=== PATIENT | male | born 1945 | race African-American/Black ===

== ENCOUNTER 2021-09-04 06:49 | Inpatient (IN) ==
[2021-09-04] MEDS ORDERED: ANCEF VIAL 1 GRAM ONE (07:13)
[2021-09-04] MEDS ORDERED: NS 100 ML IV 100 ML ONE (07:13)
[2021-09-04] MEDS ORDERED: NS 1,000 ML IV 1,000 ML ONE ×2 (07:14→12:51)
[2021-09-04] MEDS ORDERED: MARCAINE 0.5% ONE (11:31)
[2021-09-04] MEDS ORDERED: HEPARIN SODIUM IN D5W 75,000 UNITS/1,500 ML BAG ONE (11:31)
[2021-09-04] MEDS ORDERED: FENTANYL VIAL INJ 100 mcg ONE (11:34)
[2021-09-04] MEDS ORDERED: VERSED ONE ×2 (11:36→12:25)
[2021-09-04] MEDS ORDERED: DIPRIVAN VIAL 40 ML ONE (11:37)
[2021-09-04] MEDS ORDERED: KETAMINE 50 MG/5 ML-NACL SYRNG ONE (11:37)
[2021-09-04] MEDS ORDERED: HEPARIN SODIUM INJ 5000 UNITS ONE (12:08)
[2021-09-04] MEDS ORDERED: ACTIVASE CATHFLO ONE (12:51)
[2021-09-04] MEDS ORDERED: HEPARIN SODIUM IN D5W 25,000 UNITS/500 ML BAG ONE (12:51)
[2021-09-04] MEDS: ACTIVASE CATHFLO 12 MG in NS 250 ML IV 228 ML INTRACATH SCH (13:20)
[2021-09-04] MEDS ORDERED: DILAUDID INJ IVP PRN (14:11)
[2021-09-04] MEDS ORDERED: ACTIVASE CATHFLO 12 MG in NS 250 ML IV 228 ML INTRACATH ONE (14:16)
[2021-09-04] MEDS ORDERED: REFLEX: PROVENTIL NEB & PulmiCORT NEB~ NEB SCH (14:30)
[2021-09-04] MEDS ORDERED: NS 500 ML IV 500 ML IV SCH ×2 (15:00)
[2021-09-04 15:13] LABS: BASOPHILS # (AUTO) 0.1 X10^3/uL (0.0-0.1); BASOPHILS % (AUTO) 1.2 % (0.2-1.0); EOSINOPHILS # (AUTO) 0.1 x10^3/uL (0.0-0.2); EOSINOPHILS % (AUTO) 1.9 % (0.9-2.9); HEMATOCRIT 27.5 % (42.0-54.0); HEMOGLOBIN 8.9 g/dL (13.5-18.0); LYMPHOCYTES # (AUTO) 1.4 X10^3/uL (1.3-2.9); LYMPHOCYTES % (AUTO) 21.4 % (21.0-51.0); MEAN CORPUSCULAR HGB CONC 32.5 g/dL (33.0-35.0); MEAN CORPUSCULAR VOLUME 83.2 fL (80.0-100.0); MEAN PLATELET VOLUME 7.7 fL (7.4-11.0); MONOCYTES # (AUTO) 0.3 x10^3/uL (0.3-0.8); MONOCYTES % (AUTO) 5.1 % (0.0-13.0); NEUTROPHILS # (AUTO) 4.6 x10^3/uL (2.2-4.8); NEUTROPHILS % (AUTO) 70.4 % (42.0-75.0); RED CELL DISTRIBUTION WIDTH 15.8 % (11.6-16.5); WHITE BLOOD COUNT 6.6 X10^3/uL (3.6-10.0)
[2021-09-04] MEDS: LR 1,000 ML IV 1,000 ML IV SCH (15:30)
[2021-09-04] MEDS: PERCOCET TAB 5/325 MG PO PRN ×2 (16:05→22:00)
[2021-09-04] MEDS ORDERED: VENTOLIN or PROAIR HFA IN SCH (17:00)
[2021-09-04] MEDS: MORPHINE SULFATE INJ 4 MG IVP PRN ×3 (17:10→23:06)
[2021-09-04] MEDS: PROVENTIL NEB TX 0.083% 2.5MG/ 3ML NEB SCH ×2 (17:53→21:33)
[2021-09-04 18:35] VITALS: BMI 16.9
[2021-09-04] MEDS ORDERED: MORPHINE SULFATE INJ 4 MG IVP SCH (20:08)
--- NOTE | 2021-09-04 21:24 | NOTE.SOAP ---
Soap Note Note for Day of Date of Exam: 09/04/21 Subjective Data Subjective Data: Patient status post placement of thrombolytic catheter today across thrombus involving the entire right superficial femoral artery, popliteal artery and tibial peroneal trunk. Catheter threaded into the right anterior tibial artery and currently dripping TPA through the catheter. Plan return to the operating room tomorrow to try perform intervention to restore flow to the right leg . Currently complaining of pain of the right foot. This patient has a history of a lung carcinoma treated with radiation therapy only. He continues to lose weight. According to his family he had a recent diagnostic scan in [place] and was declared cancer free. Objective Data Temperature: 97.9 F Pulse Rate: 91 Respiratory Rate: 19 Blood Pressure: 172/82 O2 Sat by Pulse Oximetry: 100 Objective Data: Right foot warm. Monophasic flow in the right dorsalis pedis by Doppler Assessment Assessment: critical limb threatening ischemia right lower extremity . Plan Plan: continue TPA. To the operating room tomorrow
[2021-09-04 21:27] LABS: BASOPHILS # (AUTO) 0.1 X10^3/uL (0.0-0.1); BASOPHILS % (AUTO) 1.3 % (0.2-1.0); EOSINOPHILS # (AUTO) 0.2 x10^3/uL (0.0-0.2); EOSINOPHILS % (AUTO) 2.6 % (0.9-2.9); HEMOGLOBIN 8.1 g/dL (13.5-18.0); LYMPHOCYTES # (AUTO) 1.5 X10^3/uL (1.3-2.9); LYMPHOCYTES % (AUTO) 23.6 % (21.0-51.0); MEAN CORPUSCULAR HEMOGLOBIN 27.4 pg (27.0-34.0); MEAN CORPUSCULAR HGB CONC 32.4 g/dL (33.0-35.0); MEAN CORPUSCULAR VOLUME 84.7 fL (80.0-100.0); MEAN PLATELET VOLUME 7.9 fL (7.4-11.0); MONOCYTES # (AUTO) 0.5 x10^3/uL (0.3-0.8); MONOCYTES % (AUTO) 7.5 % (0.0-13.0); NEUTROPHILS # (AUTO) 4.2 x10^3/uL (2.2-4.8); RED BLOOD COUNT 2.96 X10^6/uL (4.7-6.0); RED CELL DISTRIBUTION WIDTH 15.8 % (11.6-16.5); WHITE BLOOD COUNT 6.4 X10^3/uL (3.6-10.0)
--- NOTE | 2021-09-04 21:28 | OR.IMMED ---
IMMEDIATE POST-OP NOTE Immediate Post-Op Note Pre-Op Diagnosis: critical limb threatening ischemia right leg , CIARRA =0.25 Post-Op Diagnosis: same Procedure: Diagnostic aortogram, diagnostic arteriogram right lower extremity, placement of thrombolytic catheter across thrombus in the entire right superficial femoral artery, popliteal artery, tibial peroneal trunk into the anterior tibial artery for planned overnight thrombolysis. Description of Procedure: see operative summary Surgeon/Refrigerating Engineer Head: Whit Findings: Complete occlusion from thrombus of the right superficial femoral artery, popliteal artery into tibial peroneal trunk and proximal anterior tibial artery . complete occlusion of the right posterior tibial artery and peroneal artery Specimens Removed: none Estimated Blood Loss: < 25 cc Drains: NONE Complications: none Discharge Progress Notes: patient to be admitted to the ICU for overnight thrombolysis and return to the operating room tomorrow for intervention of the right LE arterial intervention.
[2021-09-04] MEDS: PULMICORT NEB TX 0.5 MG NEB SCH (21:33)
[2021-09-04] MEDS: HEPARIN SODIUM IN D5W 25,000 UNITS/500 ML BAG IV PRN (21:54)
[2021-09-05] MEDS: ACTIVASE CATHFLO 12 MG in NS 250 ML IV 228 ML INTRACATH SCH (00:41)
[2021-09-05] MEDS: MORPHINE SULFATE INJ 4 MG IVP PRN ×7 (01:01→23:37)
[2021-09-05] MEDS: LR 1,000 ML IV 1,000 ML IV SCH ×4 (02:42→16:16)
[2021-09-05 03:02] LABS: BASOPHILS # (AUTO) 0.1 X10^3/uL (0.0-0.1); BASOPHILS % (AUTO) 1.4 % (0.2-1.0); EOSINOPHILS # (AUTO) 0.2 x10^3/uL (0.0-0.2); EOSINOPHILS % (AUTO) 2.7 % (0.9-2.9); HEMATOCRIT 25.5 % (42.0-54.0); HEMOGLOBIN 8.3 g/dL (13.5-18.0); LYMPHOCYTES # (AUTO) 1.2 X10^3/uL (1.3-2.9); LYMPHOCYTES % (AUTO) 19.1 % (21.0-51.0); MEAN CORPUSCULAR HEMOGLOBIN 27.2 pg (27.0-34.0); MEAN CORPUSCULAR HGB CONC 32.3 g/dL (33.0-35.0); MEAN CORPUSCULAR VOLUME 84.1 fL (80.0-100.0); MEAN PLATELET VOLUME 7.8 fL (7.4-11.0); MONOCYTES # (AUTO) 0.5 x10^3/uL (0.3-0.8); MONOCYTES % (AUTO) 7.5 % (0.0-13.0); NEUTROPHILS # (AUTO) 4.4 x10^3/uL (2.2-4.8); NEUTROPHILS % (AUTO) 69.3 % (42.0-75.0); RED BLOOD COUNT 3.03 X10^6/uL (4.7-6.0); RED CELL DISTRIBUTION WIDTH 16.1 % (11.6-16.5); WHITE BLOOD COUNT 6.4 X10^3/uL (3.6-10.0)
[2021-09-05] MEDS ORDERED: MARCAINE 0.5% ONE (06:58)
[2021-09-05] MEDS ORDERED: HEPARIN SODIUM IN D5W 75,000 UNITS/1,500 ML BAG ONE (06:59)
[2021-09-05] MEDS ORDERED: KETAMINE 50 MG/5 ML-NACL SYRNG ONE (07:13)
[2021-09-05] MEDS ORDERED: VERSED ONE (07:14)
[2021-09-05] MEDS ORDERED: FENTANYL VIAL INJ 100 mcg ONE (07:14)
[2021-09-05] MEDS ORDERED: DIPRIVAN VIAL 20 ML ONE (07:16)
[2021-09-05] MEDS ORDERED: ANCEF VIAL 1 GRAM ONE (07:36)
[2021-09-05] MEDS ORDERED: NS 100 ML IV 100 ML ONE (07:36)
[2021-09-05 07:47] LABS: BASOPHILS # (AUTO) 0.1 X10^3/uL (0.0-0.1); BASOPHILS % (AUTO) 2.3 % (0.2-1.0); EOSINOPHILS # (AUTO) 0.2 x10^3/uL (0.0-0.2); EOSINOPHILS % (AUTO) 2.6 % (0.9-2.9); HEMOGLOBIN 7.8 g/dL (13.5-18.0); LYMPHOCYTES # (AUTO) 1.2 X10^3/uL (1.3-2.9); LYMPHOCYTES % (AUTO) 19.6 % (21.0-51.0); MEAN CORPUSCULAR HEMOGLOBIN 27.3 pg (27.0-34.0); MEAN CORPUSCULAR HGB CONC 32.5 g/dL (33.0-35.0); MEAN CORPUSCULAR VOLUME 83.8 fL (80.0-100.0); MEAN PLATELET VOLUME 7.7 fL (7.4-11.0); MONOCYTES # (AUTO) 0.4 x10^3/uL (0.3-0.8); MONOCYTES % (AUTO) 6.1 % (0.0-13.0); NEUTROPHILS # (AUTO) 4.2 x10^3/uL (2.2-4.8); NEUTROPHILS % (AUTO) 69.4 % (42.0-75.0); RED BLOOD COUNT 2.87 X10^6/uL (4.7-6.0); RED CELL DISTRIBUTION WIDTH 15.9 % (11.6-16.5); WHITE BLOOD COUNT 6.1 X10^3/uL (3.6-10.0)
[2021-09-05 07:58] LABS: ALANINE AMINOTRANSFERASE 9 Units/L (12-78); ALBUMIN 2.8 g/dL (3.4-5.0); ALKALINE PHOSPHATASE 56 Units/L (46-116); ASPARTATE AMINO TRANSFERASE 15 Units/L (15-37); BLOOD UREA NITROGEN 15 mg/dL (7-18); CALCIUM 8.3 mg/dL (8.5-10.1); CARBON DIOXIDE 23.5 mmol/L (21-32); CHLORIDE 110 mmol/L (98-107); COR CA(FOR HYPOALB) 9.3 mg/dL (8.5-10.1); CREATININE 1.68 mg/dL (0.70-1.30); SODIUM 144 mmol/L (136-145); eGFR NON BLACK RACES 43 (>60)
[2021-09-05] MEDS ORDERED: BETADINE SOLN ONE (07:58)
[2021-09-05] MEDS: PROVENTIL NEB TX 0.083% 2.5MG/ 3ML NEB SCH ×5 (09:19→20:10)
[2021-09-05] MEDS: PULMICORT NEB TX 0.5 MG NEB SCH ×3 (09:19→20:10)
[2021-09-05] MEDS: ASPIRIN EC 81 MG PO SCH (09:37)
[2021-09-05] MEDS: LIPITOR TAB 40 MG PO SCH (09:37)
[2021-09-05] MEDS: TOPROL XL PO SCH (09:37)
[2021-09-05] MEDS: NEURONTIN CAP 100 MG PO SCH (09:37)
[2021-09-05] MEDS: FLOMAX PO SCH (09:37)
[2021-09-05] MEDS: PROTONIX TAB 40 MG PO SCH (09:37)
[2021-09-05] MEDS: COZAAR PO SCH (09:37)
--- NOTE | 2021-09-05 10:42 | OR.IMMED ---
IMMEDIATE POST-OP NOTE Immediate Post-Op Note Pre-Op Diagnosis: Critical limb threatening ischemia right lower extremity ,occl usion / thrombus right superficial femoral artery, popliteal artery, tibial peroneal trunk and proximal right anterior tibial artery, Right anterior tibial artery artery is the only runoff, had thrombolysis overnight Post-Op Diagnosis: same, most of the thrombus resolved ,severe disease proximal right anterior tibial artery , disease popliteal artery proximal superficial femoral artery on the right Procedure: arteriogram right lower extremity, atherectomy right superficial femoral artery, popliteal artery, proximal anterior tibial artery , angioplasty right anterior tibial artery, drug-coated stent placement left popliteal artery, drug-coated stent placement proximal right superficial femoral artery Description of Procedure: see operative summary Surgeon/A P Supervisor: Whit Findings: as above Specimens Removed: plaque Estimated Blood Loss: < 25 cc Drains: NONE Complications: none Discharge Progress Notes: return to ICU , continue heparin drip. Consider intervention on the left leg while he is in the hospital with CIARRA on left also 0.25. Condition: Stable Final Diagnosis: as above
--- NOTE | 2021-09-05 14:32 | DR.OPNOTE ---
OP NOTE Pre-Op Diagnosis: Critical limb threatening ischemia right lower extremity Post-Op Diagnosis: Same, thrombosis & AURIST right SFA, pop, tib-peroneal trunk ,proximal AT Procedure Date Date Of Procedure: 09/04/21 Procedure: PROCEDURE: diagnostic AORTOGRAM, diagnostic Arteriogram right lower extremity, selective catheterization of the right anterior tibial artery, placement of EKOS catheter, EKOS thrombolysis x 2 days . NARRATIVE: The patient was taken to the operative suite and placed in the Supine position. He was given intravenous sedation which was supervised by myself. Both the left groin and the right leg were prepped and draped in sterile fashion. Time out for the procedure obtained . The ultrasound was used to identify the left common femoral artery and the skin overlying it infiltrated with 0. 5% Marcaine . Ultrasound used to guide puncture of the left common femoral artery and a 0. 012 inch guidewire placed without difficulty. Incision made over the guide wire at the skin edge and a micro sheath placed over the guide wire into the left common femoral artery. The small wire exchanged for a 0. 035 inch Advantage glidewire and the micro sheath exchanged for a five Turkmen vascular sheath . RIM catheter placed over the guide wire and was used to steer the guidewire down the right side. The patient has palpable pulses in both groins. RIM cathter stopped in th distal right external iliac artery and sequential arteriogram carried out of the right leg showing complete occlusion at the flush take off of the right superficial femoral artery with complete occlusion of the right superficial femoral artery and evidence of clot in the popliteal artery . The arteriogram showed severe stenosis and occlusion proximally in the right anterior tibial artery with good run off to the ankle and excellent collateral flow around the right foot. The patient was given 5,000 units of intravenous Heparin. The vascular sheath in the left groin exchanged for a 6 Fr destination sheath which was parked in the right common femoral artery. The Trailblazer catheter and the 0. 035 inch glidewire were used to cross the complete total occlusion of The superficial femoral artery and popliteal artery. The 0. 035 inch wire was exchanged for a 0. 018 inch wire which was used to traverse the proximal right anterior tibial artery occlusion all the way down to the ankle. The Trailblazer catheter was place over the wire down to the ankle and the trailblazer catheter removed. Over the wire I placed the EKOS thrombolytic drip catheter, removed wire and tried to place the inner core of the EKOS catheter however, I was unable to do that. At this point I planned to drip TPA through the catheter overnight and eliminate the acoustic portion of this treatment. The hub of the sheath in the left groin secured with a silk suture. The patient was bolused with 3 mg of intravenous TPA ,started on a drip of TPA at 1 mg per hour. Coolant started through a separate port at 35 CC's per hour and a Heparin drip was started through the destination sheath at 500 units per hour to be adjusted according to protocol. I plan to continue thrombolysis during the day and tomorrow as well. The patient will be returned to the operating Suite in the morning to assess the effectiveness of the thrombolysis and at that time I plan to perform appropriate intervention. Patient taken to the ICU in good condition. Type of Anesthesia: Local (0.5 % Marcaine) Anesthesia Comment: plus MAC Findings: as above, only run off right leg is the anterior tibial artery , good collateral flow around the right foot Specimen/Pathology: none Type of Fluids Used:: Lactated Ringers Total Amount of Fluid Infused:: 750 cc Urine output: 125 cc EBL: 100cc Drains/Tubes Placed: Santiago Complications:: sanchez Needle/Sponge Count:: correct Disposition/Condition: Pt. tolerated procedure without difficulty. TAKEN TO [facility] in stable condition.
--- NOTE | 2021-09-05 14:58 | DR.OPNOTE ---
OP NOTE Disposition/Condition: Pt. tolerated procedure without difficulty. Extubated in the OR and taken to PACU in stable condition.
[2021-09-05] MEDS: PERCOCET TAB 5/325 MG PO PRN ×2 (15:19→21:06)
[2021-09-05 15:26] LABS: HEMOGLOBIN 7.9 g/dL (13.5-18.0); LYMPHOCYTES # (AUTO) 0.8 X10^3/uL (1.3-2.9); MONOCYTES # (AUTO) 0.5 x10^3/uL (0.3-0.8)
[2021-09-05 15:31] LABS: BASOPHILS # (AUTO) 0.1 X10^3/uL (0.0-0.1); BASOPHILS % (AUTO) 1.1 % (0.2-1.0); EOSINOPHILS # (AUTO) 0.2 x10^3/uL (0.0-0.2); EOSINOPHILS % (AUTO) 2.3 % (0.9-2.9); HEMATOCRIT 24.1 % (42.0-54.0); LYMPHOCYTES % (AUTO) 12.9 % (21.0-51.0); MEAN CORPUSCULAR HEMOGLOBIN 27.3 pg (27.0-34.0); MEAN CORPUSCULAR HGB CONC 32.9 g/dL (33.0-35.0); MEAN CORPUSCULAR VOLUME 82.8 fL (80.0-100.0); MEAN PLATELET VOLUME 8.1 fL (7.4-11.0); MONOCYTES % (AUTO) 7.8 % (0.0-13.0); NEUTROPHILS % (AUTO) 75.9 % (42.0-75.0); RED BLOOD COUNT 2.91 X10^6/uL (4.7-6.0); RED CELL DISTRIBUTION WIDTH 16.4 % (11.6-16.5); WHITE BLOOD COUNT 6.6 X10^3/uL (3.6-10.0)
[2021-09-05 16:14] LABS: CKMB % 3.4 % (<4)
[2021-09-05 16:29] LABS: CREATINE KINASE MB 6.2 ng/mL (0-4.0)
[2021-09-05 20:35] LABS: CKMB % 2.4 % (<4)
[2021-09-05 20:36] LABS: CREATINE KINASE MB 4.7 ng/mL (0-4.0)
[2021-09-05 21:08] LABS: BASOPHILS # (AUTO) 0.1 X10^3/uL (0.0-0.1); BASOPHILS % (AUTO) 0.9 % (0.2-1.0); EOSINOPHILS # (AUTO) 0.2 x10^3/uL (0.0-0.2); EOSINOPHILS % (AUTO) 3.2 % (0.9-2.9); HEMATOCRIT 24.1 % (42.0-54.0); HEMOGLOBIN 7.7 g/dL (13.5-18.0); LYMPHOCYTES % (AUTO) 16.2 % (21.0-51.0); MEAN CORPUSCULAR HEMOGLOBIN 27.1 pg (27.0-34.0); MEAN CORPUSCULAR HGB CONC 32.2 g/dL (33.0-35.0); MEAN CORPUSCULAR VOLUME 84.4 fL (80.0-100.0); MEAN PLATELET VOLUME 7.8 fL (7.4-11.0); MONOCYTES # (AUTO) 0.5 x10^3/uL (0.3-0.8); MONOCYTES % (AUTO) 7.7 % (0.0-13.0); NEUTROPHILS # (AUTO) 4.3 x10^3/uL (2.2-4.8); RED BLOOD COUNT 2.85 X10^6/uL (4.7-6.0); RED CELL DISTRIBUTION WIDTH 16.2 % (11.6-16.5)
[2021-09-05] MEDS ORDERED: HEPARIN SODIUM INJ 5000 UNITS IVP ONE (21:22)
--- NOTE | 2021-09-05 23:59 | NOTE.SOAP ---
Soap Note Note for Day of Date of Exam: 09/05/21 Subjective Data Subjective Data: Completed thrombolysis of the right leg this morning. Underweight intervention with angioplasty of the right anterior tibial artery with atherectomy and drug coated balloon angioplasty of popliteal and superficial femoral artery with placement of stent in the distal popliteal artery and the proximal superficial femoral artery .Has done well and is stable hemodynamically. Had one episode of chest pain but the CK[-MB fractionaa are negative with no ischemic changes on EKGs. Objective Data Pulse Rate: 81 Respiratory Rate: 18 Blood Pressure: 134/62 O2 Sat by Pulse Oximetry: 100 Objective Data: Right foot warm with biphasic doppler signal in the posterior tibial and dorsalis pedis arteries. PTT=52.3 Assessment Assessment: S/P revascularization of the right leg and it is doing well. Plan Plan: Continue present care and Heparin drip. Will consider revascularization of the left leg on as the most recent ankle brachial index equals 0. 25
[2021-09-06 01:58] LABS: CKMB % 1.9 % (<4); CREATINE KINASE MB 3.7 ng/mL (0-4.0)
[2021-09-06] MEDS: LR 1,000 ML IV 1,000 ML IV SCH ×2 (02:12→05:40)
[2021-09-06] MEDS: PERCOCET TAB 5/325 MG PO PRN ×3 (02:33→18:50)
[2021-09-06 03:28] LABS: BASOPHILS # (AUTO) 0.1 X10^3/uL (0.0-0.1); HEMOGLOBIN 7.5 g/dL (13.5-18.0); RED BLOOD COUNT 2.76 X10^6/uL (4.7-6.0)
[2021-09-06 03:43] LABS: EOSINOPHILS # (AUTO) 0.3 x10^3/uL (0.0-0.2); EOSINOPHILS % (AUTO) 4.6 % (0.9-2.9); HEMATOCRIT 23.1 % (42.0-54.0); LYMPHOCYTES # (AUTO) 1.3 X10^3/uL (1.3-2.9); LYMPHOCYTES % (AUTO) 17.4 % (21.0-51.0); MEAN CORPUSCULAR HEMOGLOBIN 27.3 pg (27.0-34.0); MEAN CORPUSCULAR HGB CONC 32.5 g/dL (33.0-35.0); MEAN CORPUSCULAR VOLUME 83.9 fL (80.0-100.0); MEAN PLATELET VOLUME 8.8 fL (7.4-11.0); MONOCYTES # (AUTO) 0.6 x10^3/uL (0.3-0.8); WHITE BLOOD COUNT 7.2 X10^3/uL (3.6-10.0)
[2021-09-06] MEDS: MORPHINE SULFATE INJ 4 MG IVP PRN ×3 (05:40→20:13)
[2021-09-06] MEDS: ASPIRIN EC 81 MG PO SCH (08:38)
[2021-09-06] MEDS: PROTONIX TAB 40 MG PO SCH (08:39)
[2021-09-06] MEDS: LIPITOR TAB 40 MG PO SCH (08:39)
[2021-09-06] MEDS: FLOMAX PO SCH (08:39)
[2021-09-06] MEDS: TOPROL XL PO SCH (08:39)
[2021-09-06] MEDS: COZAAR PO SCH (08:39)
[2021-09-06] MEDS: NEURONTIN CAP 100 MG PO SCH (08:39)
[2021-09-06] MEDS: PROVENTIL NEB TX 0.083% 2.5MG/ 3ML NEB SCH ×4 (09:18→20:00)
[2021-09-06] MEDS: PULMICORT NEB TX 0.5 MG NEB SCH ×2 (09:19→20:00)
[2021-09-06 10:00] LABS: BASOPHILS # (AUTO) 0.2 X10^3/uL (0.0-0.1); BASOPHILS % (AUTO) 2.5 % (0.2-1.0); EOSINOPHILS # (AUTO) 0.3 x10^3/uL (0.0-0.2); EOSINOPHILS % (AUTO) 3.6 % (0.9-2.9); HEMATOCRIT 25.1 % (42.0-54.0); HEMOGLOBIN 8.1 g/dL (13.5-18.0); LYMPHOCYTES # (AUTO) 1.2 X10^3/uL (1.3-2.9); LYMPHOCYTES % (AUTO) 16.2 % (21.0-51.0); MEAN CORPUSCULAR HEMOGLOBIN 26.6 pg (27.0-34.0); MEAN CORPUSCULAR HGB CONC 32.3 g/dL (33.0-35.0); MEAN CORPUSCULAR VOLUME 82.4 fL (80.0-100.0); MEAN PLATELET VOLUME 8.5 fL (7.4-11.0); MONOCYTES # (AUTO) 0.6 x10^3/uL (0.3-0.8); MONOCYTES % (AUTO) 7.9 % (0.0-13.0); NEUTROPHILS # (AUTO) 5.1 x10^3/uL (2.2-4.8); NEUTROPHILS % (AUTO) 69.8 % (42.0-75.0); RED BLOOD COUNT 3.05 X10^6/uL (4.7-6.0); RED CELL DISTRIBUTION WIDTH 16.3 % (11.6-16.5); WHITE BLOOD COUNT 7.2 X10^3/uL (3.6-10.0)
--- NOTE | 2021-09-06 10:47 | DR.OPNOTE ---
OP NOTE Pre-Op Diagnosis: critical limb ischemia left leg with thrombosis Post-Op Diagnosis: same Procedure Date Date Of Procedure: 09/05/21 Procedure: PROCEDURE: Arteriogram right lower extremity, atherectomy and balloon angioplasty right popliteal and right superficial femoral arteries , atherectomy and balloon angioplasty of the right anterior tibial artery, drug coated stenting of the right popliteal artery, drug coated stenting of the proximal right superficial femoral artery NARRATIVE: The patient was taken from the ICU to the operative suite and placed in the supine position. There already was a destination sheath in the left common femoral artery which was parked in the right common femoral artery. Both groins prepped and draped in sterile fashion. The TPA had been turned off several hours previously. The patient continued on a Heparin drip. EKOS catheter removed and wire placed down into the right anterior tibial artery. Arteriogram carried out through the sheath showing most of the thrombus to have been resolved from the right superficial femoral artery and popliteal artery with good flow down the right leg. There was still complete occlusion of the proximal right anterior tibial artery. A Trailblazer catheter was placed over the 0. 035 inch wire and exchanged for a 0. 014 inch Spider basket and wire which was deployed in the anterior tibial artery. Over the wire we placed the Jet Stream atherectomy device and performed athrectomy of the entire right superficial femoral artery and popliteal artery as well as the proximal anterior tibial artery . The Jet Stream device removed and the anterior tibial artery ballooned open with a Chocolate balloon measuring 3. 5 mm by 120 mm which was inflated for 1 minute. This removed and exchanged for a 6 mm by 200 mm [employer] balloon which was used to sequentially dilate the right popliteal and right superficial femoral arteries. We did note significant plaque still present in the popliteal artery on the right side just above the knee joint as well as the superficial femoral artery proximally. For this reason a 6 mm by 120 mm Jaye drug-eluting stent was placed in the popliteal artery just above the knee joint and expanded with a 6 mm balloon. Proximal superficial femoral artery had a 7 mm by 120 mm Jaye drug eluting stent placed and ballooned open with the 6 mm balloon. Post procedure arteriogram showed excellent flow all the way through the right superficial femoral artery and right popliteal artery and the right answer to the lottery to the foot with excellent collateral flow. I did attempt to place a wire down the tibial peroneal trunk but this was unsuccessful and I stopped this procedure. All wires and devices removed. The destination sheath in the left groin pull back into the aorta and a 0. 035 inch guide wire placed. The destination sheath was exchanged for an Angioseal device which was used to close the puncture of the left common femoral artery . Patient taking back to the ICU in good condition and to be continued on the Heparin drip. Type of Anesthesia: Local (0.5% Marcaine) Anesthesia Comment: plus MAC Findings: After thromboslysis ,occlusion of the proximal right anterior tibial artery, one vessel runoff right leg, stenosis distal right popliteal artery, stenosis proximal right superficial femoral artery, Specimen/Pathology: plaque Type of Fluids Used:: Lactated Ringers EBL: < 25 cc Drains/Tubes Placed: None Hardware: stent right popliteal artery, stent Complications:: none Needle/Sponge Count:: correct Disposition/Condition: Pt. tolerated procedure without difficulty. Taken to [facility] in stable condition.
[2021-09-06] MEDS ORDERED: HEPARIN SODIUM INJ 5000 UNITS IVP ONE (10:55)
[2021-09-06 14:39] LABS: BASOPHILS # (AUTO) 0.1 X10^3/uL (0.0-0.1); EOSINOPHILS # (AUTO) 0.3 x10^3/uL (0.0-0.2); NEUTROPHILS # (AUTO) 4.8 x10^3/uL (2.2-4.8)
[2021-09-06 14:45] LABS: BASOPHILS % (AUTO) 0.8 % (0.2-1.0); EOSINOPHILS % (AUTO) 4.1 % (0.9-2.9); HEMATOCRIT 21.8 % (42.0-54.0); LYMPHOCYTES % (AUTO) 14.8 % (21.0-51.0); MEAN CORPUSCULAR HEMOGLOBIN 26.9 pg (27.0-34.0); MEAN CORPUSCULAR HGB CONC 32.1 g/dL (33.0-35.0); MEAN CORPUSCULAR VOLUME 83.6 fL (80.0-100.0); MEAN PLATELET VOLUME 8.1 fL (7.4-11.0); MONOCYTES # (AUTO) 0.5 x10^3/uL (0.3-0.8); MONOCYTES % (AUTO) 8.1 % (0.0-13.0); NEUTROPHILS % (AUTO) 72.2 % (42.0-75.0); RED BLOOD COUNT 2.61 X10^6/uL (4.7-6.0); RED CELL DISTRIBUTION WIDTH 15.9 % (11.6-16.5); WHITE BLOOD COUNT 6.6 X10^3/uL (3.6-10.0)
[2021-09-06] MEDS ORDERED: NS 500 ML IV 500 ML IV ONE (15:13)
[2021-09-06] MEDS: HEPARIN SODIUM IN D5W 25,000 UNITS/500 ML BAG IV PRN (15:20)
[2021-09-06 18:05] LABS: HEMOGLOBIN 6.5 g/dL (13.5-18.0)
[2021-09-06 18:06] LABS: HEMATOCRIT 19.8 % (42.0-54.0)
[2021-09-06 18:27] LABS: CKMB % 1.4 % (<4); CREATINE KINASE MB 2.3 ng/mL (0-4.0)
--- NOTE | 2021-09-06 19:21 | W.DIS.FURT ---
Summary of Discharge Discharge Summary of Date Date of Exam: 09/06/21 Admission Date Date of Admission: 09/04/21 Admission Diagnosis Hospital Course: 76 year old male with history of significant tobacco abuse, recent radiation treatment for lung cancer and ischemia of both lower extremities, right greater than left. Initial right ankle brachial index was 0. 4 and left ankle brachial index was 0. 6 .In May he underwent atherectomy and drug-coated balloon angioplasty of the right superficial femoral artery and was discharged home on Xareltop and aspirin . He continued to smoke cigarettes heavily and presented with an ischemic right leg which was resolved in June by antegrade and retrograde approaches with angioplasty of the right anterior tibial artery and stenting of the right superficial femoral artery. Again despite Xarelto and aspirin included he occluded the leg again and Ankle brachial index was now 0. 24 on the right and 0. 25 on the left. He did not have left sided rest pain. On September 04 we went to the operative Suite with arteriogram confirmed thrombosis of the entire right superficial femoral and popliteal arteries with one vessel run off by the anterior tibial artery with complete total occlusion of the right leg . He had overnight thrombolysis with an EKOS catheter and returned to the operating Suite the next day September 05 and arteriography confirmed resolution of the thrombus. At that time he underwent atherectomy and angioplasty of the right anterior tibial artery as well as athrectomy and balloon angioplasty of the entire right superficial femoral artery and popliteal artery and the subsequent stenting of the popliteal artery on the right side above the knee and stenting of the proximal right superficial femoral artery. Post procedure he was returned to the ICU on Heparin drip . Approximately two hours after the surgery he had a single episode of chest pain which resolved and has not returned. Initial EKG showed no acute changes. Ck- mb fractions were negative. Initial Troponins were markedly elevated at greater than 2500 and I was concerned this was an error because he was completely asymptomatic clinically at the time. Eventually the lab did confirm these to be correct. His family has asked for transfer to [facility] in [place].He remains clinically stable without chest pain. The right leg has excellent doppler signals of biphasic quality in the dorsalis pedis and anterior tibial artery. His hemoglobin did drop to a low of 6. 5 G and he is currently receiving two units of packed red blood cells. His hemoglobin had been stable prior to this at approximately 8 grams. Vital Signs: Vital Signs (72 hours) 09/04/21 07:26 09/04/21 13:26 09/04/21 13:41 Temperature 98.8 F Pulse Rate 98 H 100 H 105 H Pulse Rate [Right Brachial] Respiratory Rate 18 16 16 Blood Pressure 145/70 188/91 189/99 Blood Pressure [Right Arm] O2 Sat by Pulse Oximetry 100 96 96 09/04/21 13:56 09/04/21 14:11 09/04/21 14:30 Temperature 98.2 F Pulse Rate 102 H 100 H Pulse Rate [Right Brachial] 101 H Respiratory Rate 16 16 24 Blood Pressure 187/96 185/91 Blood Pressure [Right Arm] 184/90 O2 Sat by Pulse Oximetry 95 96 100 09/04/21 14:45 09/04/21 15:00 09/04/21 15:15 Temperature 98.2 F 98.2 F 98.0 F Pulse Rate Pulse Rate [Right Brachial] 99 H 103 H 97 H Respiratory Rate 28 H 18 14 Blood Pressure Blood Pressure [Right Arm] 182/89 172/75 190/81 O2 Sat by Pulse Oximetry 100 100 100 09/04/21 15:27 09/04/21 15:30 09/04/21 15:57 Temperature 98.4 F Pulse Rate Pulse Rate [Right Brachial] 102 H Respiratory Rate 14 22 14 Blood Pressure Blood Pressure [Right Arm] 165/85 O2 Sat by Pulse Oximetry 100 09/04/21 16:00 09/04/21 16:05 09/04/21 16:30 Temperature 98.2 F 98.0 F Pulse Rate Pulse Rate [Right Brachial] 129 H 98 H Respiratory Rate 22 14 13 Blood Pressure Blood Pressure [Right Arm] 209/84 185/91 O2 Sat by Pulse Oximetry 100 100 09/04/21 17:00 09/04/21 17:05 09/04/21 17:10 Temperature 98.2 F Pulse Rate Pulse Rate [Right Brachial] 107 H Respiratory Rate 16 15 16 Blood Pressure Blood Pressure [Right Arm] 183/91 O2 Sat by Pulse Oximetry 100 09/04/21 17:30 09/04/21 17:40 09/04/21 18:00 Temperature 98.0 F 97.8 F Pulse Rate Pulse Rate [Right Brachial] 94 H 108 H Respiratory Rate 15 18 21 Blood Pressure Blood Pressure [Right Arm] 167/81 164/87 O2 Sat by Pulse Oximetry 100 100 09/04/21 19:00 09/04/21 19:47 09/04/21 20:00 Temperature Pulse Rate 102 H 100 H Pulse Rate [Right Brachial] Respiratory Rate 23 23 12 Blood Pressure 160/77 165/92 Blood Pressure [Right Arm] O2 Sat by Pulse Oximetry 100 100 09/04/21 20:17 09/04/21 20:39 09/04/21 21:00 Temperature 97.9 F Pulse Rate 91 H Pulse Rate [Right Brachial] Respiratory Rate 22 20 19 Blood Pressure 172/82 Blood Pressure [Right Arm] O2 Sat by Pulse Oximetry 100 09/04/21 21:09 09/04/21 21:23 09/04/21 21:33 Temperature 97.9 F Pulse Rate 91 H 104 H Pulse Rate [Right Brachial] Respiratory Rate 19 19 Blood Pressure 172/82 Blood Pressure [Right Arm] O2 Sat by Pulse Oximetry 100 100 09/04/21 22:00 09/04/21 23:00 09/04/21 23:06 Temperature Pulse Rate 89 121 H Pulse Rate [Right Brachial] Respiratory Rate 18 27 H 19 Blood Pressure 135/70 154/83 Blood Pressure [Right Arm] O2 Sat by Pulse Oximetry 100 100 09/04/21 23:15 09/04/21 23:30 09/04/21 23:36 Temperature Pulse Rate 91 H 96 H Pulse Rate [Right Brachial] Respiratory Rate 13 17 26 H Blood Pressure 166/84 Blood Pressure [Right Arm] O2 Sat by Pulse Oximetry 100 100 09/04/21 23:45 09/05/21 00:00 09/05/21 00:15 Temperature 98.1 F Pulse Rate 95 H 93 H 109 H Pulse Rate [Right Brachial] Respiratory Rate 27 H 15 35 H Blood Pressure 149/72 Blood Pressure [Right Arm] O2 Sat by Pulse Oximetry 100 100 100 09/05/21 00:30 09/05/21 00:45 09/05/21 01:00 Temperature Pulse Rate 89 96 H 94 H Pulse Rate [Right Brachial] Respiratory Rate 15 14 20 Blood Pressure 153/76 153/80 Blood Pressure [Right Arm] O2 Sat by Pulse Oximetry 100 100 100 09/05/21 01:01 09/05/21 01:15 09/05/21 01:30 Temperature Pulse Rate 87 103 H Pulse Rate [Right Brachial] Respiratory Rate 15 14 29 H Blood Pressure 162/80 Blood Pressure [Right Arm] O2 Sat by Pulse Oximetry 100 100 09/05/21 01:31 09/05/21 01:45 09/05/21 02:00 Temperature Pulse Rate 102 H 97 H Pulse Rate [Right Brachial] Respiratory Rate 12 42 H 14 Blood Pressure 159/77 Blood Pressure [Right Arm] O2 Sat by Pulse Oximetry 100 100 09/05/21 02:15 09/05/21 02:30 09/05/21 02:45 Temperature Pulse Rate 98 H 107 H 104 H Pulse Rate [Right Brachial] Respiratory Rate 16 18 21 Blood Pressure 157/81 Blood Pressure [Right Arm] O2 Sat by Pulse Oximetry 100 100 100 09/05/21 03:00 09/05/21 03:07 09/05/21 03:15 Temperature Pulse Rate 107 H 93 H Pulse Rate [Right Brachial] Respiratory Rate 18 13 15 Blood Pressure 157/73 Blood Pressure [Right Arm] O2 Sat by Pulse Oximetry 100 100 09/05/21 03:30 09/05/21 03:37 09/05/21 03:45 Temperature Pulse Rate 107 H 107 H Pulse Rate [Right Brachial] Respiratory Rate 13 16 16 Blood Pressure 166/85 Blood Pressure [Right Arm] O2 Sat by Pulse Oximetry 100 100 09/05/21 04:00 09/05/21 04:15 09/05/21 04:30 Temperature 98.5 F Pulse Rate 88 110 H 90 Pulse Rate [Right Brachial] Respiratory Rate 15 17 15 Blood Pressure 127/65 146/70 Blood Pressure [Right Arm] O2 Sat by Pulse Oximetry 100 100 100 09/05/21 04:45 09/05/21 05:00 09/05/21 05:15 Temperature Pulse Rate 90 108 H 86 Pulse Rate [Right Brachial] Respiratory Rate 15 21 16 Blood Pressure 151/84 Blood Pressure [Right Arm] O2 Sat by Pulse Oximetry 100 100 100 09/05/21 05:30 09/05/21 05:44 09/05/21 05:45 Temperature Pulse Rate 96 H 98 H Pulse Rate [Right Brachial] Respiratory Rate 17 14 17 Blood Pressure 148/79 Blood Pressure [Right Arm] O2 Sat by Pulse Oximetry 100 100 09/05/21 06:00 09/05/21 06:15 09/05/21 06:30 Temperature Pulse Rate 85 92 H 95 H Pulse Rate [Right Brachial] Respiratory Rate 15 16 15 Blood Pressure 129/68 150/78 Blood Pressure [Right Arm] O2 Sat by Pulse Oximetry 100 100 100 09/05/21 06:45 09/05/21 07:00 09/05/21 07:15 Temperature 98.5 F Pulse Rate 94 H 95 H 98 H Pulse Rate [Right Brachial] Respiratory Rate 16 15 17 Blood Pressure 149/80 Blood Pressure [Right Arm] O2 Sat by Pulse Oximetry 100 100 100 09/05/21 07:33 09/05/21 09:30 09/05/21 09:45 Temperature 98.9 F 98.9 F Pulse Rate 105 H 118 H 104 H Pulse Rate [Right Brachial] Respiratory Rate 16 16 16 Blood Pressure 147/77 161/85 157/90 Blood Pressure [Right Arm] O2 Sat by Pulse Oximetry 93 L 100 100 09/05/21 10:00 09/05/21 10:15 09/05/21 10:18 Temperature 98.9 F 98.4 F Pulse Rate 105 H 125 H Pulse Rate [Right Brachial] Respiratory Rate 16 21 16 Blood Pressure 158/89 158/89 Blood Pressure [Right Arm] O2 Sat by Pulse Oximetry 100 100 09/05/21 10:30 09/05/21 10:48 09/05/21 11:00 Temperature 98.4 F 98.7 F Pulse Rate 100 H 101 H Pulse Rate [Right Brachial] Respiratory Rate 18 16 18 Blood Pressure 152/78 143/75 Blood Pressure [Right Arm] O2 Sat by Pulse Oximetry 100 100 09/05/21 11:30 09/05/21 11:57 09/05/21 12:30 Temperature 98.7 F 98.8 F 98.5 F Pulse Rate 94 H 88 96 H Pulse Rate [Right Brachial] Respiratory Rate 16 16 16 Blood Pressure 147/83 139/82 131/78 Blood Pressure [Right Arm] O2 Sat by Pulse Oximetry 100 100 100 09/05/21 13:00 09/05/21 13:15 09/05/21 13:22 Temperature Pulse Rate 100 H 107 H Pulse Rate [Right Brachial] Respiratory Rate 16 18 Blood Pressure 145/80 Blood Pressure [Right Arm] O2 Sat by Pulse Oximetry 100 100 09/05/21 13:30 09/05/21 13:52 09/05/21 14:00 Temperature 98.5 F Pulse Rate 98 H 98 H Pulse Rate [Right Brachial] Respiratory Rate 18 18 18 Blood Pressure 151/83 148/81 Blood Pressure [Right Arm] O2 Sat by Pulse Oximetry 100 100 09/05/21 14:15 09/05/21 14:30 09/05/21 14:45 Temperature 98.7 F Pulse Rate 97 H 92 H 96 H Pulse Rate [Right Brachial] Respiratory Rate 25 H 15 59 H Blood Pressure 143/74 134/74 124/72 Blood Pressure [Right Arm] O2 Sat by Pulse Oximetry 100 100 100 09/05/21 15:00 09/05/21 15:15 09/05/21 15:19 Temperature Pulse Rate 95 H 94 H Pulse Rate [Right Brachial] Respiratory Rate 16 25 H 18 Blood Pressure 128/72 131/74 Blood Pressure [Right Arm] O2 Sat by Pulse Oximetry 100 100 09/05/21 15:30 09/05/21 15:45 09/05/21 16:00 Temperature 98.8 F Pulse Rate 88 90 90 Pulse Rate [Right Brachial] Respiratory Rate 18 19 18 Blood Pressure 124/69 128/75 133/79 Blood Pressure [Right Arm] O2 Sat by Pulse Oximetry 100 100 100 09/05/21 16:15 09/05/21 16:19 09/05/21 16:30 Temperature Pulse Rate 88 87 Pulse Rate [Right Brachial] Respiratory Rate 33 H 18 41 H Blood Pressure 121/70 127/77 Blood Pressure [Right Arm] O2 Sat by Pulse Oximetry 100 100 09/05/21 16:45 09/05/21 17:00 09/05/21 17:15 Temperature Pulse Rate 86 82 83 Pulse Rate [Right Brachial] Respiratory Rate 42 H 30 H 29 H Blood Pressure 121/71 113/66 121/70 Blood Pressure [Right Arm] O2 Sat by Pulse Oximetry 100 100 100 09/05/21 17:30 09/05/21 17:45 09/05/21 17:54 Temperature Pulse Rate 84 90 91 H Pulse Rate [Right Brachial] Respiratory Rate 45 H 28 H 18 Blood Pressure 119/70 129/70 129/70 Blood Pressure [Right Arm] O2 Sat by Pulse Oximetry 100 100 100 09/05/21 18:00 09/05/21 18:15 09/05/21 18:19 Temperature Pulse Rate 101 H 83 Pulse Rate [Right Brachial] Respiratory Rate 36 H 34 H 18 Blood Pressure 125/69 125/68 Blood Pressure [Right Arm] O2 Sat by Pulse Oximetry 100 100 09/05/21 18:30 09/05/21 18:45 09/05/21 18:49 Temperature Pulse Rate 81 87 Pulse Rate [Right Brachial] Respiratory Rate 32 H 28 H 18 Blood Pressure 123/68 127/70 Blood Pressure [Right Arm] O2 Sat by Pulse Oximetry 100 100 09/05/21 19:00 09/05/21 19:15 09/05/21 19:30 Temperature Pulse Rate 80 80 77 Pulse Rate [Right Brachial] Respiratory Rate 67 H 43 H 28 H Blood Pressure 122/70 123/70 117/62 Blood Pressure [Right Arm] O2 Sat by Pulse Oximetry 100 100 100 09/05/21 20:00 09/05/21 20:10 09/05/21 21:00 Temperature 98.8 F 98.8 F Pulse Rate 81 82 92 H Pulse Rate [Right Brachial] Respiratory Rate 58 H 56 H Blood Pressure 117/62 117/65 Blood Pressure [Right Arm] O2 Sat by Pulse Oximetry 100 100 100 09/05/21 21:06 09/05/21 21:11 09/05/21 22:00 Temperature Pulse Rate 89 77 Pulse Rate [Right Brachial] Respiratory Rate 18 66 H 49 H Blood Pressure 117/65 115/61 Blood Pressure [Right Arm] O2 Sat by Pulse Oximetry 100 100 09/05/21 22:06 09/05/21 23:00 09/05/21 23:37 Temperature Pulse Rate 89 Pulse Rate [Right Brachial] Respiratory Rate 18 74 H 18 Blood Pressure 134/63 Blood Pressure [Right Arm] O2 Sat by Pulse Oximetry 100 09/05/21 23:59 09/06/21 00:00 09/06/21 00:07 Temperature 98.4 F Pulse Rate 81 84 Pulse Rate [Right Brachial] Respiratory Rate 18 59 H 18 Blood Pressure 134/62 134/63 Blood Pressure [Right Arm] O2 Sat by Pulse Oximetry 100 100 09/06/21 01:00 09/06/21 02:00 09/06/21 02:33 Temperature Pulse Rate 96 H 90 Pulse Rate [Right Brachial] Respiratory Rate 44 H 31 H 18 Blood Pressure 132/67 133/64 Blood Pressure [Right Arm] O2 Sat by Pulse Oximetry 100 100 09/06/21 03:00 09/06/21 03:33 09/06/21 04:00 Temperature Pulse Rate 83 96 H Pulse Rate [Right Brachial] Respiratory Rate 47 H 18 36 H Blood Pressure 134/65 146/78 Blood Pressure [Right Arm] O2 Sat by Pulse Oximetry 100 100 09/06/21 05:00 09/06/21 05:40 09/06/21 06:00 Temperature 98.7 F Pulse Rate 97 H 86 Pulse Rate [Right Brachial] Respiratory Rate 19 18 15 Blood Pressure 128/66 136/65 Blood Pressure [Right Arm] O2 Sat by Pulse Oximetry 100 100 09/06/21 06:10 09/06/21 07:00 09/06/21 08:00 Temperature Pulse Rate 82 85 Pulse Rate [Right Brachial] Respiratory Rate 20 20 17 Blood Pressure 130/66 138/63 Blood Pressure [Right Arm] O2 Sat by Pulse Oximetry 100 100 09/06/21 09:00 09/06/21 09:08 09/06/21 09:19 Temperature 98.1 F Pulse Rate 105 H 97 H Pulse Rate [Right Brachial] Respiratory Rate 27 H 20 Blood Pressure 125/58 Blood Pressure [Right Arm] O2 Sat by Pulse Oximetry 100 99 09/06/21 10:00 09/06/21 10:08 09/06/21 10:59 Temperature Pulse Rate 96 H 96 H Pulse Rate [Right Brachial] Respiratory Rate 23 18 21 Blood Pressure 144/67 144/67 Blood Pressure [Right Arm] O2 Sat by Pulse Oximetry 100 100 09/06/21 11:00 09/06/21 12:00 09/06/21 13:00 Temperature Pulse Rate 98 H 79 81 Pulse Rate [Right Brachial] Respiratory Rate 32 H 26 H 25 H Blood Pressure 140/73 127/63 132/72 Blood Pressure [Right Arm] O2 Sat by Pulse Oximetry 100 100 100 09/06/21 14:00 09/06/21 14:48 09/06/21 15:00 Temperature 98.8 F Pulse Rate 77 87 Pulse Rate [Right Brachial] Respiratory Rate 23 18 27 H Blood Pressure 117/58 110/62 Blood Pressure [Right Arm] O2 Sat by Pulse Oximetry 100 100 09/06/21 15:18 09/06/21 16:00 09/06/21 17:00 Temperature 98.1 F Pulse Rate 77 75 Pulse Rate [Right Brachial] Respiratory Rate 18 26 H 28 H Blood Pressure 116/58 109/59 Blood Pressure [Right Arm] O2 Sat by Pulse Oximetry 100 100 09/06/21 17:30 09/06/21 18:00 09/06/21 18:50 Temperature 98.1 F Pulse Rate 80 78 Pulse Rate [Right Brachial] Respiratory Rate 38 H 18 Blood Pressure 122/60 Blood Pressure [Right Arm] O2 Sat by Pulse Oximetry 100 100 Labs: Laboratory Last Values WBC 6.6 X10^3/uL (3.6-10.0) 09/06/21 14:20 RBC 2.61 X10^6/uL (4.7-6.0) L 09/06/21 14:20 Hgb 6.5 g/dL (13.5-18.0) L* 09/06/21 17:43 Hct 19.8 % (42.0-54.0) L* 09/06/21 17:43 MCV 83.6 fL (80.0-100.0) 09/06/21 14:20 MCH 26.9 pg (27.0-34.0) L 09/06/21 14:20 MCHC 32.1 g/dL (33.0-35.0) L 09/06/21 14:20 RDW 15.9 % (11.6-16.5) 09/06/21 14:20 Plt Count 126 X10^3/uL (150.0-450.0) L 09/06/21 14:20 MPV 8.1 fL (7.4-11.0) 09/06/21 14:20 Neut % (Auto) 72.2 % (42.0-75.0) 09/06/21 14:20 Lymph % (Auto) 14.8 % (21.0-51.0) L 09/06/21 14:20 [place] % (Auto) 8.1 % (0.0-13.0) 09/06/21 14:20 Eos % (Auto) 4.1 % (0.9-2.9) H 09/06/21 14:20 Baso % (Auto) 0.8 % (0.2-1.0) 09/06/21 14:20 Neut # (Auto) 4.8 x10^3/uL (2.2-4.8) 09/06/21 14:20 Lymph # (Auto) 1.0 X10^3/uL (1.3-2.9) L 09/06/21 14:20 [place] # (Auto) 0.5 x10^3/uL (0.3-0.8) 09/06/21 14:20 Eos # (Auto) 0.3 x10^3/uL (0.0-0.2) H 09/06/21 14:20 Baso # (Auto) 0.1 X10^3/uL (0.0-0.1) 09/06/21 14:20 Absolute Nucleated RBC 0.0 /100WBC 09/06/21 14:20 APTT 147.7 SECONDS (22.9-36.5) H* 09/06/21 17:43 PTT Comment - 09/06/21 17:43 Fibrinogen 372 mg/dL (239-489) 09/05/21 07:31 Sodium 144 mmol/L (136-145) 09/05/21 07:31 Corrected Sodium TNP 09/05/21 07:31 Potassium 4.2 mmol/L (3.5-5.1) 09/05/21 07:31 Chloride 110 mmol/L (98-107) H 09/05/21 07:31 Carbon Dioxide 23.5 mmol/L (21-32) 09/05/21 07:31 BUN 15 mg/dL (7-18) 09/05/21 07:31 Creatinine 1.68 mg/dL (0.70-1.30) H 09/05/21 07:31 Est GFR (MDRD) Af Amer 51 (>60) L 09/05/21 07:31 Est GFR (MDRD) Non-Af 43 (>60) L 09/05/21 07:31 Glucose 103 mg/dL (65-99) H 09/05/21 07:31 Calcium 8.3 mg/dL (8.5-10.1) L 09/05/21 07:31 Corrected Calcium 9.3 mg/dL (8.5-10.1) 09/05/21 07:31 Total Bilirubin 0.50 mg/dL (0.2-1.0) 09/05/21 07:31 AST 15 Units/L (15-37) 09/05/21 07:31 ALT 9 Units/L (12-78) L 09/05/21 07:31 Alkaline Phosphatase 56 Units/L (46-116) 09/05/21 07:31 Creatine Kinase 168 Units/L (39-308) 09/06/21 17:43 CK-MB (CK-2) 2.3 ng/mL (0-4.0) 09/06/21 17:43 CK/CKMB % Calc 1.4 % (<4) 09/06/21 17:43 Troponin I High Sens 1057.8 ng/L (4.0-60.0) H* 09/06/21 17:43 Total Protein 6.0 g/dL (6.4-8.2) L 09/05/21 07:31 Albumin 2.8 g/dL (3.4-5.0) L 09/05/21 07:31 Globulin 3.2 g/dL (2.5-4.5) 09/05/21 07:31 Albumin/Globulin Ratio 0.9 Ratio (1.1-2.1) L 09/05/21 07:31 SARS CoV-2 RNA Rapid NATALIE Negative (NEGATIVE) 09/04/21 13:30 Reason For Visit: CRITICAL ISCHEMIA RIGHT LEG Discharge Date Discharge Date: 09/06/21 Discharge Diagnosis All Active Problems (Updated 06/15/21 @ 20:25 by Solitario Sherman) Critical limb ischemia of right lower extremity (Acute) Plan of Treatment: Continue with present treatment and follow up plan. Pt is to keep follow up appointment as instructed and take medications as ordered. Discharge Medications Discharge Medications: aspirin Allergy (Verified 06/15/21 07:16) esomeprazole [From Nexium] Allergy (Verified 06/15/21 07:16) hydrochlorothiazide [From Prinzide] Allergy (Verified 06/15/21 07:16) ibuprofen Allergy (Verified 06/15/21 07:13) lisinopril Allergy (Verified 06/15/21 07:16) Penicillins Allergy (Verified 06/15/21 07:16) CONTINUE taking the following medications atorvastatin 40 mg PO DAILY 09/05/21 [History] budesonide-formoterol [Symbicort] 1 puff INHALATION DAILY 09/05/21 [History] dutasteride 0.5 mg PO DAILY 09/05/21 [History] famotidine 40 mg PO BID 09/05/21 [History] folic acid 1 mg PO DAILY 09/05/21 [History] gabapentin 100 mg PO HS 09/05/21 [History] losartan 100 mg PO DAILY 09/05/21 [History] metoprolol succinate 25 mg PO DAILY 09/05/21 [History] pantoprazole 40 mg PO DAILY 09/05/21 [History] Heparin drip tamsulosin 0.4 mg PO BID 09/05/21 [History] trazodone 50 mg PO HS PRN 09/05/21 [History] Follow up and Referral Follow Up: 2 Weeks () Discharge Disposition Assessment: per the hospital course above Discharge Disposition: stable Discharge Condition: Stable Discharge Plan Discharge Plan Hospital Course: 76 year old male with history of significant tobacco abuse, recent radiation treatment for lung cancer and ischemia of both lower extremities, right greater than left. Initial right ankle brachial index was 0. 4 and left ankle brachial index was 0. 6 .In May he underwent atherectomy and drug-coated balloon angioplasty of the right superficial femoral artery and was discharged home on Xareltop and aspirin . He continued to smoke cigarettes heavily and presented with an ischemic right leg which was resolved in June by antegrade and retrograde approaches with angioplasty of the right anterior tibial artery and stenting of the right superficial femoral artery. Again despite Xarelto and aspirin included he occluded the leg again and Ankle brachial index was now 0. 24 on the right and 0. 25 on the left. He did not have left sided rest pain. On September 04 we went to the operative Suite with arteriogram confirmed thrombosis of the entire right superficial femoral and popliteal arteries with one vessel run off by the anterior tibial artery with complete total occlusion of the right leg . He had overnight thrombolysis with an EKOS catheter and returned to the operating Suite the next day September 05 and arteriography confirmed resolution of the thrombus. At that time he underwent atherectomy and angioplasty of the right anterior tibial artery as well as athrectomy and balloon angioplasty of the entire right superficial femoral artery and popliteal artery and the subsequent stenting of the popliteal artery on the right side above the knee and stenting of the proximal right superficial femoral artery. Post procedure he was returned to the ICU on Heparin drip . Approximately two hours after the surgery he had a single episode of chest pain which resolved and has not returned. Initial EKG showed no acute changes. Ck- mb fractions were negative. Initial Troponins were markedly elevated at greater than 2500 and I was concerned this was an error because he was completely asymptomatic clinically at the time. Eventually the lab did confirm these to be correct. His family has asked for transfer to [facility] in [place].He remains clinically stable without chest pain. The right leg has excellent doppler signals of biphasic quality in the dorsalis pedis and anterior tibial artery. His hemoglobin did drop to a low of 6. 5 G and he is currently receiving two units of packed red blood cells. His hemoglobin had been stable prior to this at approximately 8 grams. Patient Disposition: 01 HOME, SELF-CARE Condition: Stable Health Concerns: Post Hospitalization: new medications and changes needed to prevent readmission or further decline. Pt educated and given instructions on all concerns. Plan of Treatment: Continue with present treatment and follow up plan. Pt is to keep follow up appointment as instructed and take medications as ordered. Assessment: per the hospital course above Prescriptions: Continued dutasteride 0.5 mg Capsule 0.5 mg PO DAILY RF: 0 budesonide-formoterol [Symbicort] 160-4.5 mcg/actuation HFA aerosol inhaler 1 puff INHALATION DAILY RF: 0 trazodone 50 mg Tablet 50 mg PO HS PRNRF: 0 Xarelto 2.5 mg Tablet 2.5 mg PO BID RF: 0 famotidine 40 mg Tablet 40 mg PO BID RF: 0 tamsulosin 0.4 mg Capsule 0.4 mg PO BID RF: 0 losartan 100 mg Tablet 100 mg PO DAILY RF: 0 folic acid 1 mg Tablet 1 mg PO DAILY RF: 0 pantoprazole 40 mg Tablet,Delayed Release (Dr/Ec) 40 mg PO DAILY RF: 0 atorvastatin 40 mg Tablet 40 mg PO DAILY RF: 0 gabapentin 100 mg Capsule 100 mg PO HS RF: 0 metoprolol succinate 25 mg Tablet Extended Release 24 Hr 25 mg PO DAILY RF: 0 Follow ups/Referrals Follow ups/Referrals: Solitario Sherman [Primary Care Provider] - 1 WEEK Instructions Stand Alone Forms: Excuse From Work or School, Precautions for COVID19, [facility], Patient Portal, Social Distancing
--- NOTE | 2021-09-06 19:24 | W.DIS.FURT ---
Summary of Discharge Discharge Summary of Date Date of Exam: 09/06/21 Admission Diagnosis Hospital Course: 76 year old male with history of significant tobacco abuse, recent radiation treatment for lung cancer and ischemia of both lower extremities, right greater than left. Initial right ankle brachial index was 0. 4 and left ankle brachial index was 0. 6 .In May he underwent atherectomy and drug-coated balloon angioplasty of the right superficial femoral artery and was discharged home on Xareltop and aspirin . He continued to smoke cigarettes heavily and presented with an ischemic right leg which was resolved in June by antegrade and retrograde approaches with angioplasty of the right anterior tibial artery and stenting of the right superficial femoral artery. Again despite Xarelto and aspirin included he occluded the leg again and Ankle brachial index was now 0. 24 on the right and 0. 25 on the left. He did not have left sided rest pain. On September 04 we went to the operative Suite with arteriogram confirmed thrombosis of the entire right superficial femoral and popliteal arteries with one vessel run off by the anterior tibial artery with complete total occlusion of the right leg . He had overnight thrombolysis with an EKOS catheter and returned to the operating Suite the next day September 05 and arteriography confirmed resolution of the thrombus. At that time he underwent atherectomy and angioplasty of the right anterior tibial artery as well as athrectomy and balloon angioplasty of the entire right superficial femoral artery and popliteal artery and the subsequent stenting of the popliteal artery on the right side above the knee and stenting of the proximal right superficial femoral artery. Post procedure he was returned to the ICU on Heparin drip . Approximately two hours after the surgery he had a single episode of chest pain which resolved and has not returned. Initial EKG showed no acute changes. Ck- mb fractions were negative. Initial Troponins were markedly elevated at greater than 2500 and I was concerned this was an error because he was completely asymptomatic clinically at the time. Eventually the lab did confirm these to be correct. His family has asked for transfer to [facility] in [place].He remains clinically stable without chest pain. The right leg has excellent doppler signals of biphasic quality in the dorsalis pedis and anterior tibial artery. His hemoglobin did drop to a low of 6. 5 G and he is currently receiving two units of packed red blood cells. His hemoglobin had been stable prior to this at approximately 8 grams. Vital Signs: Vital Signs (72 hours) 09/04/21 07:26 09/04/21 13:26 09/04/21 13:41 Temperature 98.8 F Pulse Rate 98 H 100 H 105 H Pulse Rate [Right Brachial] Respiratory Rate 18 16 16 Blood Pressure 145/70 188/91 189/99 Blood Pressure [Right Arm] O2 Sat by Pulse Oximetry 100 96 96 09/04/21 13:56 09/04/21 14:11 09/04/21 14:30 Temperature 98.2 F Pulse Rate 102 H 100 H Pulse Rate [Right Brachial] 101 H Respiratory Rate 16 16 24 Blood Pressure 187/96 185/91 Blood Pressure [Right Arm] 184/90 O2 Sat by Pulse Oximetry 95 96 100 09/04/21 14:45 09/04/21 15:00 09/04/21 15:15 Temperature 98.2 F 98.2 F 98.0 F Pulse Rate Pulse Rate [Right Brachial] 99 H 103 H 97 H Respiratory Rate 28 H 18 14 Blood Pressure Blood Pressure [Right Arm] 182/89 172/75 190/81 O2 Sat by Pulse Oximetry 100 100 100 09/04/21 15:27 09/04/21 15:30 09/04/21 15:57 Temperature 98.4 F Pulse Rate Pulse Rate [Right Brachial] 102 H Respiratory Rate 14 22 14 Blood Pressure Blood Pressure [Right Arm] 165/85 O2 Sat by Pulse Oximetry 100 09/04/21 16:00 09/04/21 16:05 09/04/21 16:30 Temperature 98.2 F 98.0 F Pulse Rate Pulse Rate [Right Brachial] 129 H 98 H Respiratory Rate 22 14 13 Blood Pressure Blood Pressure [Right Arm] 209/84 185/91 O2 Sat by Pulse Oximetry 100 100 09/04/21 17:00 09/04/21 17:05 09/04/21 17:10 Temperature 98.2 F Pulse Rate Pulse Rate [Right Brachial] 107 H Respiratory Rate 16 15 16 Blood Pressure Blood Pressure [Right Arm] 183/91 O2 Sat by Pulse Oximetry 100 09/04/21 17:30 09/04/21 17:40 09/04/21 18:00 Temperature 98.0 F 97.8 F Pulse Rate Pulse Rate [Right Brachial] 94 H 108 H Respiratory Rate 15 18 21 Blood Pressure Blood Pressure [Right Arm] 167/81 164/87 O2 Sat by Pulse Oximetry 100 100 09/04/21 19:00 09/04/21 19:47 09/04/21 20:00 Temperature Pulse Rate 102 H 100 H Pulse Rate [Right Brachial] Respiratory Rate 23 23 12 Blood Pressure 160/77 165/92 Blood Pressure [Right Arm] O2 Sat by Pulse Oximetry 100 100 09/04/21 20:17 09/04/21 20:39 09/04/21 21:00 Temperature 97.9 F Pulse Rate 91 H Pulse Rate [Right Brachial] Respiratory Rate 22 20 19 Blood Pressure 172/82 Blood Pressure [Right Arm] O2 Sat by Pulse Oximetry 100 09/04/21 21:09 09/04/21 21:23 09/04/21 21:33 Temperature 97.9 F Pulse Rate 91 H 104 H Pulse Rate [Right Brachial] Respiratory Rate 19 19 Blood Pressure 172/82 Blood Pressure [Right Arm] O2 Sat by Pulse Oximetry 100 100 09/04/21 22:00 09/04/21 23:00 09/04/21 23:06 Temperature Pulse Rate 89 121 H Pulse Rate [Right Brachial] Respiratory Rate 18 27 H 19 Blood Pressure 135/70 154/83 Blood Pressure [Right Arm] O2 Sat by Pulse Oximetry 100 100 09/04/21 23:15 09/04/21 23:30 09/04/21 23:36 Temperature Pulse Rate 91 H 96 H Pulse Rate [Right Brachial] Respiratory Rate 13 17 26 H Blood Pressure 166/84 Blood Pressure [Right Arm] O2 Sat by Pulse Oximetry 100 100 09/04/21 23:45 09/05/21 00:00 09/05/21 00:15 Temperature 98.1 F Pulse Rate 95 H 93 H 109 H Pulse Rate [Right Brachial] Respiratory Rate 27 H 15 35 H Blood Pressure 149/72 Blood Pressure [Right Arm] O2 Sat by Pulse Oximetry 100 100 100 09/05/21 00:30 09/05/21 00:45 09/05/21 01:00 Temperature Pulse Rate 89 96 H 94 H Pulse Rate [Right Brachial] Respiratory Rate 15 14 20 Blood Pressure 153/76 153/80 Blood Pressure [Right Arm] O2 Sat by Pulse Oximetry 100 100 100 09/05/21 01:01 09/05/21 01:15 09/05/21 01:30 Temperature Pulse Rate 87 103 H Pulse Rate [Right Brachial] Respiratory Rate 15 14 29 H Blood Pressure 162/80 Blood Pressure [Right Arm] O2 Sat by Pulse Oximetry 100 100 09/05/21 01:31 09/05/21 01:45 09/05/21 02:00 Temperature Pulse Rate 102 H 97 H Pulse Rate [Right Brachial] Respiratory Rate 12 42 H 14 Blood Pressure 159/77 Blood Pressure [Right Arm] O2 Sat by Pulse Oximetry 100 100 09/05/21 02:15 09/05/21 02:30 09/05/21 02:45 Temperature Pulse Rate 98 H 107 H 104 H Pulse Rate [Right Brachial] Respiratory Rate 16 18 21 Blood Pressure 157/81 Blood Pressure [Right Arm] O2 Sat by Pulse Oximetry 100 100 100 09/05/21 03:00 09/05/21 03:07 09/05/21 03:15 Temperature Pulse Rate 107 H 93 H Pulse Rate [Right Brachial] Respiratory Rate 18 13 15 Blood Pressure 157/73 Blood Pressure [Right Arm] O2 Sat by Pulse Oximetry 100 100 09/05/21 03:30 09/05/21 03:37 09/05/21 03:45 Temperature Pulse Rate 107 H 107 H Pulse Rate [Right Brachial] Respiratory Rate 13 16 16 Blood Pressure 166/85 Blood Pressure [Right Arm] O2 Sat by Pulse Oximetry 100 100 09/05/21 04:00 09/05/21 04:15 09/05/21 04:30 Temperature 98.5 F Pulse Rate 88 110 H 90 Pulse Rate [Right Brachial] Respiratory Rate 15 17 15 Blood Pressure 127/65 146/70 Blood Pressure [Right Arm] O2 Sat by Pulse Oximetry 100 100 100 09/05/21 04:45 09/05/21 05:00 09/05/21 05:15 Temperature Pulse Rate 90 108 H 86 Pulse Rate [Right Brachial] Respiratory Rate 15 21 16 Blood Pressure 151/84 Blood Pressure [Right Arm] O2 Sat by Pulse Oximetry 100 100 100 09/05/21 05:30 09/05/21 05:44 09/05/21 05:45 Temperature Pulse Rate 96 H 98 H Pulse Rate [Right Brachial] Respiratory Rate 17 14 17 Blood Pressure 148/79 Blood Pressure [Right Arm] O2 Sat by Pulse Oximetry 100 100 09/05/21 06:00 09/05/21 06:15 09/05/21 06:30 Temperature Pulse Rate 85 92 H 95 H Pulse Rate [Right Brachial] Respiratory Rate 15 16 15 Blood Pressure 129/68 150/78 Blood Pressure [Right Arm] O2 Sat by Pulse Oximetry 100 100 100 09/05/21 06:45 09/05/21 07:00 09/05/21 07:15 Temperature 98.5 F Pulse Rate 94 H 95 H 98 H Pulse Rate [Right Brachial] Respiratory Rate 16 15 17 Blood Pressure 149/80 Blood Pressure [Right Arm] O2 Sat by Pulse Oximetry 100 100 100 09/05/21 07:33 09/05/21 09:30 09/05/21 09:45 Temperature 98.9 F 98.9 F Pulse Rate 105 H 118 H 104 H Pulse Rate [Right Brachial] Respiratory Rate 16 16 16 Blood Pressure 147/77 161/85 157/90 Blood Pressure [Right Arm] O2 Sat by Pulse Oximetry 93 L 100 100 09/05/21 10:00 09/05/21 10:15 09/05/21 10:18 Temperature 98.9 F 98.4 F Pulse Rate 105 H 125 H Pulse Rate [Right Brachial] Respiratory Rate 16 21 16 Blood Pressure 158/89 158/89 Blood Pressure [Right Arm] O2 Sat by Pulse Oximetry 100 100 09/05/21 10:30 09/05/21 10:48 09/05/21 11:00 Temperature 98.4 F 98.7 F Pulse Rate 100 H 101 H Pulse Rate [Right Brachial] Respiratory Rate 18 16 18 Blood Pressure 152/78 143/75 Blood Pressure [Right Arm] O2 Sat by Pulse Oximetry 100 100 09/05/21 11:30 09/05/21 11:57 09/05/21 12:30 Temperature 98.7 F 98.8 F 98.5 F Pulse Rate 94 H 88 96 H Pulse Rate [Right Brachial] Respiratory Rate 16 16 16 Blood Pressure 147/83 139/82 131/78 Blood Pressure [Right Arm] O2 Sat by Pulse Oximetry 100 100 100 09/05/21 13:00 09/05/21 13:15 09/05/21 13:22 Temperature Pulse Rate 100 H 107 H Pulse Rate [Right Brachial] Respiratory Rate 16 18 Blood Pressure 145/80 Blood Pressure [Right Arm] O2 Sat by Pulse Oximetry 100 100 09/05/21 13:30 09/05/21 13:52 09/05/21 14:00 Temperature 98.5 F Pulse Rate 98 H 98 H Pulse Rate [Right Brachial] Respiratory Rate 18 18 18 Blood Pressure 151/83 148/81 Blood Pressure [Right Arm] O2 Sat by Pulse Oximetry 100 100 09/05/21 14:15 09/05/21 14:30 09/05/21 14:45 Temperature 98.7 F Pulse Rate 97 H 92 H 96 H Pulse Rate [Right Brachial] Respiratory Rate 25 H 15 59 H Blood Pressure 143/74 134/74 124/72 Blood Pressure [Right Arm] O2 Sat by Pulse Oximetry 100 100 100 09/05/21 15:00 09/05/21 15:15 09/05/21 15:19 Temperature Pulse Rate 95 H 94 H Pulse Rate [Right Brachial] Respiratory Rate 16 25 H 18 Blood Pressure 128/72 131/74 Blood Pressure [Right Arm] O2 Sat by Pulse Oximetry 100 100 09/05/21 15:30 09/05/21 15:45 09/05/21 16:00 Temperature 98.8 F Pulse Rate 88 90 90 Pulse Rate [Right Brachial] Respiratory Rate 18 19 18 Blood Pressure 124/69 128/75 133/79 Blood Pressure [Right Arm] O2 Sat by Pulse Oximetry 100 100 100 09/05/21 16:15 09/05/21 16:19 09/05/21 16:30 Temperature Pulse Rate 88 87 Pulse Rate [Right Brachial] Respiratory Rate 33 H 18 41 H Blood Pressure 121/70 127/77 Blood Pressure [Right Arm] O2 Sat by Pulse Oximetry 100 100 09/05/21 16:45 09/05/21 17:00 09/05/21 17:15 Temperature Pulse Rate 86 82 83 Pulse Rate [Right Brachial] Respiratory Rate 42 H 30 H 29 H Blood Pressure 121/71 113/66 121/70 Blood Pressure [Right Arm] O2 Sat by Pulse Oximetry 100 100 100 09/05/21 17:30 09/05/21 17:45 09/05/21 17:54 Temperature Pulse Rate 84 90 91 H Pulse Rate [Right Brachial] Respiratory Rate 45 H 28 H 18 Blood Pressure 119/70 129/70 129/70 Blood Pressure [Right Arm] O2 Sat by Pulse Oximetry 100 100 100 09/05/21 18:00 09/05/21 18:15 09/05/21 18:19 Temperature Pulse Rate 101 H 83 Pulse Rate [Right Brachial] Respiratory Rate 36 H 34 H 18 Blood Pressure 125/69 125/68 Blood Pressure [Right Arm] O2 Sat by Pulse Oximetry 100 100 09/05/21 18:30 09/05/21 18:45 09/05/21 18:49 Temperature Pulse Rate 81 87 Pulse Rate [Right Brachial] Respiratory Rate 32 H 28 H 18 Blood Pressure 123/68 127/70 Blood Pressure [Right Arm] O2 Sat by Pulse Oximetry 100 100 09/05/21 19:00 09/05/21 19:15 09/05/21 19:30 Temperature Pulse Rate 80 80 77 Pulse Rate [Right Brachial] Respiratory Rate 67 H 43 H 28 H Blood Pressure 122/70 123/70 117/62 Blood Pressure [Right Arm] O2 Sat by Pulse Oximetry 100 100 100 09/05/21 20:00 09/05/21 20:10 09/05/21 21:00 Temperature 98.8 F 98.8 F Pulse Rate 81 82 92 H Pulse Rate [Right Brachial] Respiratory Rate 58 H 56 H Blood Pressure 117/62 117/65 Blood Pressure [Right Arm] O2 Sat by Pulse Oximetry 100 100 100 09/05/21 21:06 09/05/21 21:11 09/05/21 22:00 Temperature Pulse Rate 89 77 Pulse Rate [Right Brachial] Respiratory Rate 18 66 H 49 H Blood Pressure 117/65 115/61 Blood Pressure [Right Arm] O2 Sat by Pulse Oximetry 100 100 09/05/21 22:06 09/05/21 23:00 09/05/21 23:37 Temperature Pulse Rate 89 Pulse Rate [Right Brachial] Respiratory Rate 18 74 H 18 Blood Pressure 134/63 Blood Pressure [Right Arm] O2 Sat by Pulse Oximetry 100 09/05/21 23:59 09/06/21 00:00 09/06/21 00:07 Temperature 98.4 F Pulse Rate 81 84 Pulse Rate [Right Brachial] Respiratory Rate 18 59 H 18 Blood Pressure 134/62 134/63 Blood Pressure [Right Arm] O2 Sat by Pulse Oximetry 100 100 09/06/21 01:00 09/06/21 02:00 09/06/21 02:33 Temperature Pulse Rate 96 H 90 Pulse Rate [Right Brachial] Respiratory Rate 44 H 31 H 18 Blood Pressure 132/67 133/64 Blood Pressure [Right Arm] O2 Sat by Pulse Oximetry 100 100 09/06/21 03:00 09/06/21 03:33 09/06/21 04:00 Temperature Pulse Rate 83 96 H Pulse Rate [Right Brachial] Respiratory Rate 47 H 18 36 H Blood Pressure 134/65 146/78 Blood Pressure [Right Arm] O2 Sat by Pulse Oximetry 100 100 09/06/21 05:00 09/06/21 05:40 09/06/21 06:00 Temperature 98.7 F Pulse Rate 97 H 86 Pulse Rate [Right Brachial] Respiratory Rate 19 18 15 Blood Pressure 128/66 136/65 Blood Pressure [Right Arm] O2 Sat by Pulse Oximetry 100 100 09/06/21 06:10 09/06/21 07:00 09/06/21 08:00 Temperature Pulse Rate 82 85 Pulse Rate [Right Brachial] Respiratory Rate 20 20 17 Blood Pressure 130/66 138/63 Blood Pressure [Right Arm] O2 Sat by Pulse Oximetry 100 100 09/06/21 09:00 09/06/21 09:08 09/06/21 09:19 Temperature 98.1 F Pulse Rate 105 H 97 H Pulse Rate [Right Brachial] Respiratory Rate 27 H 20 Blood Pressure 125/58 Blood Pressure [Right Arm] O2 Sat by Pulse Oximetry 100 99 09/06/21 10:00 09/06/21 10:08 09/06/21 10:59 Temperature Pulse Rate 96 H 96 H Pulse Rate [Right Brachial] Respiratory Rate 23 18 21 Blood Pressure 144/67 144/67 Blood Pressure [Right Arm] O2 Sat by Pulse Oximetry 100 100 09/06/21 11:00 09/06/21 12:00 09/06/21 13:00 Temperature Pulse Rate 98 H 79 81 Pulse Rate [Right Brachial] Respiratory Rate 32 H 26 H 25 H Blood Pressure 140/73 127/63 132/72 Blood Pressure [Right Arm] O2 Sat by Pulse Oximetry 100 100 100 09/06/21 14:00 09/06/21 14:48 09/06/21 15:00 Temperature 98.8 F Pulse Rate 77 87 Pulse Rate [Right Brachial] Respiratory Rate 23 18 27 H Blood Pressure 117/58 110/62 Blood Pressure [Right Arm] O2 Sat by Pulse Oximetry 100 100 09/06/21 15:18 09/06/21 16:00 09/06/21 17:00 Temperature 98.1 F Pulse Rate 77 75 Pulse Rate [Right Brachial] Respiratory Rate 18 26 H 28 H Blood Pressure 116/58 109/59 Blood Pressure [Right Arm] O2 Sat by Pulse Oximetry 100 100 09/06/21 17:30 Temperature Pulse Rate 80 Pulse Rate [Right Brachial] Respiratory Rate Blood Pressure Blood Pressure [Right Arm] O2 Sat by Pulse Oximetry 100 Labs: Laboratory Last Values WBC 6.6 X10^3/uL (3.6-10.0) 09/06/21 14:20 RBC 2.61 X10^6/uL (4.7-6.0) L 09/06/21 14:20 Hgb 6.5 g/dL (13.5-18.0) L* 09/06/21 17:43 Hct 19.8 % (42.0-54.0) L* 09/06/21 17:43 MCV 83.6 fL (80.0-100.0) 09/06/21 14:20 MCH 26.9 pg (27.0-34.0) L 09/06/21 14:20 MCHC 32.1 g/dL (33.0-35.0) L 09/06/21 14:20 RDW 15.9 % (11.6-16.5) 09/06/21 14:20 Plt Count 126 X10^3/uL (150.0-450.0) L 09/06/21 14:20 MPV 8.1 fL (7.4-11.0) 09/06/21 14:20 Neut % (Auto) 72.2 % (42.0-75.0) 09/06/21 14:20 Lymph % (Auto) 14.8 % (21.0-51.0) L 09/06/21 14:20 [place] % (Auto) 8.1 % (0.0-13.0) 09/06/21 14:20 Eos % (Auto) 4.1 % (0.9-2.9) H 09/06/21 14:20 Baso % (Auto) 0.8 % (0.2-1.0) 09/06/21 14:20 Neut # (Auto) 4.8 x10^3/uL (2.2-4.8) 09/06/21 14:20 Lymph # (Auto) 1.0 X10^3/uL (1.3-2.9) L 09/06/21 14:20 [place] # (Auto) 0.5 x10^3/uL (0.3-0.8) 09/06/21 14:20 Eos # (Auto) 0.3 x10^3/uL (0.0-0.2) H 09/06/21 14:20 Baso # (Auto) 0.1 X10^3/uL (0.0-0.1) 09/06/21 14:20 Absolute Nucleated RBC 0.0 /100WBC 09/06/21 14:20 APTT 147.7 SECONDS (22.9-36.5) H* 09/06/21 17:43 PTT Comment - 09/06/21 17:43 Fibrinogen 372 mg/dL (239-489) 09/05/21 07:31 Sodium 144 mmol/L (136-145) 09/05/21 07:31 Corrected Sodium TNP 09/05/21 07:31 Potassium 4.2 mmol/L (3.5-5.1) 09/05/21 07:31 Chloride 110 mmol/L (98-107) H 09/05/21 07:31 Carbon Dioxide 23.5 mmol/L (21-32) 09/05/21 07:31 BUN 15 mg/dL (7-18) 09/05/21 07:31 Creatinine 1.68 mg/dL (0.70-1.30) H 09/05/21 07:31 Est GFR (MDRD) Af Amer 51 (>60) L 09/05/21 07:31 Est GFR (MDRD) Non-Af 43 (>60) L 09/05/21 07:31 Glucose 103 mg/dL (65-99) H 09/05/21 07:31 Calcium 8.3 mg/dL (8.5-10.1) L 09/05/21 07:31 Corrected Calcium 9.3 mg/dL (8.5-10.1) 09/05/21 07:31 Total Bilirubin 0.50 mg/dL (0.2-1.0) 09/05/21 07:31 AST 15 Units/L (15-37) 09/05/21 07:31 ALT 9 Units/L (12-78) L 09/05/21 07:31 Alkaline Phosphatase 56 Units/L (46-116) 09/05/21 07:31 Creatine Kinase 196 Units/L (39-308) 09/06/21 01:00 CK-MB (CK-2) 3.7 ng/mL (0-4.0) 09/06/21 01:00 CK/CKMB % Calc 1.9 % (<4) 09/06/21 01:00 Troponin I High Sens 1956.0 ng/L (4.0-60.0) H* 09/06/21 01:00 Total Protein 6.0 g/dL (6.4-8.2) L 09/05/21 07:31 Albumin 2.8 g/dL (3.4-5.0) L 09/05/21 07:31 Globulin 3.2 g/dL (2.5-4.5) 09/05/21 07:31 Albumin/Globulin Ratio 0.9 Ratio (1.1-2.1) L 09/05/21 07:31 SARS CoV-2 RNA Rapid NATALIE Negative (NEGATIVE) 09/04/21 13:30 Reason For Visit: CRITICAL ISCHEMIA RIGHT LEG Discharge Diagnosis All Active Problems (Updated 06/15/21 @ 20:25 by Solitario Sherman) Critical limb ischemia of right lower extremity (Acute) Plan of Treatment: Continue with present treatment and follow up plan. Pt is to keep follow up appointment as instructed and take medications as ordered. Discharge Medications Discharge Medications: aspirin Allergy (Verified 06/15/21 07:16) esomeprazole [From Nexium] Allergy (Verified 06/15/21 07:16) hydrochlorothiazide [From Prinzide] Allergy (Verified 06/15/21 07:16) ibuprofen Allergy (Verified 06/15/21 07:13) lisinopril Allergy (Verified 06/15/21 07:16) Penicillins Allergy (Verified 06/15/21 07:16) CONTINUE taking the following medications atorvastatin 40 mg PO DAILY 09/05/21 [History] budesonide-formoterol [Symbicort] 1 puff INHALATION DAILY 09/05/21 [History] dutasteride 0.5 mg PO DAILY 09/05/21 [History] famotidine 40 mg PO BID 09/05/21 [History] folic acid 1 mg PO DAILY 09/05/21 [History] gabapentin 100 mg PO HS 09/05/21 [History] losartan 100 mg PO DAILY 09/05/21 [History] metoprolol succinate 25 mg PO DAILY 09/05/21 [History] pantoprazole 40 mg PO DAILY 09/05/21 [History] rivaroxaban [Xarelto] 2.5 mg PO BID 09/05/21 [History] tamsulosin 0.4 mg PO BID 09/05/21 [History] trazodone 50 mg PO HS PRN 09/05/21 [History] Follow up and Referral Follow Up: 2 Weeks () Discharge Disposition Assessment: per the hospital course above Discharge Plan Discharge Plan Hospital Course: 76 year old male with history of significant tobacco abuse, recent radiation treatment for lung cancer and ischemia of both lower extremities, right greater than left. Initial right ankle brachial index was 0. 4 and left ankle brachial index was 0. 6 .In May he underwent atherectomy and drug-coated balloon angioplasty of the right superficial femoral artery and was discharged home on Xareltop and aspirin . He continued to smoke cigarettes heavily and presented with an ischemic right leg which was resolved in June by antegrade and retrograde approaches with angioplasty of the right anterior tibial artery and stenting of the right superficial femoral artery. Again despite Xarelto and aspirin included he occluded the leg again and Ankle brachial index was now 0. 24 on the right and 0. 25 on the left. He did not have left sided rest pain. On September 04 we went to the operative Suite with arteriogram confirmed thrombosis of the entire right superficial femoral and popliteal arteries with one vessel run off by the anterior tibial artery with complete total occlusion of the right leg . He had overnight thrombolysis with an EKOS catheter and returned to the operating Suite the next day September 05 and arteriography confirmed resolution of the thrombus. At that time he underwent atherectomy and angioplasty of the right anterior tibial artery as well as athrectomy and balloon angioplasty of the entire right superficial femoral artery and popliteal artery and the subsequent stenting of the popliteal artery on the right side above the knee and stenting of the proximal right superficial femoral artery. Post procedure he was returned to the ICU on Heparin drip . Margaret roximately two hours after the surgery he had a single episode of chest pain which resolved and has not returned. Initial EKG showed no acute changes. Ck- mb fractions were negative. Initial Troponins were markedly elevated at greater than 2500 and I was concerned this was an error because he was completely asymptomatic clinically at the time. Eventually the lab did confirm these to be correct. His family has asked for transfer to [facility] in [place].He remains clinically stable without chest pain. The right leg has excellent doppler signals of biphasic quality in the dorsalis pedis and anterior tibial artery. His hemoglobin did drop to a low of 6. 5 G and he is currently receiving two units of packed red blood cells. His hemoglobin had been stable prior to this at approximately 8 grams. Patient Disposition: 01 HOME, SELF-CARE Condition: Stable Health Concerns: Post Hospitalization: new medications and changes needed to prevent readmission or further decline. Pt educated and given instructions on all concerns. Plan of Treatment: Continue with present treatment and follow up plan. Pt is to keep follow up appointment as instructed and take medications as ordered. Assessment: per the hospital course above Prescriptions: Continued dutasteride 0.5 mg Capsule 0.5 mg PO DAILY RF: 0 budesonide-formoterol [Symbicort] 160-4.5 mcg/actuation HFA aerosol inhaler 1 puff INHALATION DAILY RF: 0 trazodone 50 mg Tablet 50 mg PO HS PRNRF: 0 Xarelto 2.5 mg Tablet 2.5 mg PO BID RF: 0 famotidine 40 mg Tablet 40 mg PO BID RF: 0 tamsulosin 0.4 mg Capsule 0.4 mg PO BID RF: 0 losartan 100 mg Tablet 100 mg PO DAILY RF: 0 folic acid 1 mg Tablet 1 mg PO DAILY RF: 0 pantoprazole 40 mg Tablet,Delayed Release (Dr/Ec) 40 mg PO DAILY RF: 0 atorvastatin 40 mg Tablet 40 mg PO DAILY RF: 0 gabapentin 100 mg Capsule 100 mg PO HS RF: 0 metoprolol succinate 25 mg Tablet Extended Release 24 Hr 25 mg PO DAILY RF: 0 Follow ups/Referrals Follow ups/Referrals: Solitario Sherman [Primary Care Provider] - 1 WEEK Instructions Stand Alone Forms: Excuse From Work or School, Precautions for [place] [id number], [facility], Patient Portal, Social Distancing
[2021-09-06 20:31] VITALS: BP 127/60
== END 2021-09-06 20:27 | disposition short-term general hospital (02) | DRG 271 ==
LOC: SURG1 06:49 → ICU 14:09
PROVIDERS: ADMIT Surgery; ATTEND Surgery
DX: I70.222 Atherosclerosis of native arteries of extremities with rest pain, left leg; Z20.822 Contact with and (suspected) exposure to COVID-19; Z72.0 Tobacco use; C34.90 Malignant neoplasm of unspecified part of unspecified bronchus or lung; R94.31 Abnormal electrocardiogram [ECG] [EKG]